=== PATIENT | male | born 1940 | race Caucasian/White ===

== ENCOUNTER 2022-10-08 01:29 | Observation (INO) | payer MEDICARE ==
[2022-10-08] MEDS ORDERED: Aspirin Chewable 81 MG TAB ONE (01:47)
[2022-10-08 01:50] LABS: #Basophils 0.2 10x3/uL (0.0-0.2); #Eosinphils 0.4 10x3/uL (0.0-0.5); #Monocytes 0.8 10x3/uL (0.0-1.1); #Neutrophils 4.7 10x3/uL (1.5-8.4); %Basophils 1.9 % (0.0-2.0); %Eosinophils 4.1 % (0.0-6.0); %Lymphocytes 31.7 % (18.0-47.0); %Monocytes 9.1 % (0.0-10.0); Mean Corpuscular HGB CONC 33.7 g/dL (32.0-36.0); Mean Corpuscular Hemoglobin 30.4 pg (27.0-33.0); Mean Corpuscular Volume 90.2 fl (81.2-95.1); Mean Platelet Volume 10.8 fl (7.4-10.4); Platelet Count 208 10x3/uL (150-450); RBC Distribution Width 12.9 % (11.5-14.5); White Blood Cell (WBC) Count 8.8 10x3/uL (3.5-10.5)
[2022-10-08 02:06] LABS: ALT (SGPT) 21 U/L (8-55); AST (SGOT) 22 U/L (5-34); Albumin 4.1 g/dL (3.4-4.8); Alkaline Phosphatase 67 U/L (40-110); Anion Gap 14 mmol/L (10-20); BUN (Urea Nitrogen) 23 mg/dL (8.4-25.7); Bilirubin, Total 0.3 mg/dL (0.2-1.2); Calc. Creatinine Clearance 0 mL/min (70-130); Calcium 8.9 mg/dL (7.8-10.44); Carbon Dioxide 22 mmol/L (23-31); Chloride 106 mmol/L (98-107); Estimated GFR 61; Globulin 2.7 g/dL (2.4-3.5); Glucose 128 mg/dL (83-110); Protein, Total 6.8 g/dL (5.8-8.1); Sodium 138 mmol/L (136-145)
[2022-10-08] MEDS ORDERED: Guaifenesin DM 100-10/5 ML UDCUP PO PRN (02:53)
[2022-10-08] MEDS ORDERED: Acetaminophen 325 MG TAB PO PRN (02:53)
[2022-10-08] MEDS ORDERED: Ondansetron PF 4 MG/2 ML Vial IVP PRN (02:53)
[2022-10-08] MEDS ORDERED: Zolpidem Tartrate 5 MG TAB PO PRN (02:53)
[2022-10-08] MEDS ORDERED: Calcium Carbonate 500 MG ChewTAB PO PRN (02:53)
[2022-10-08] MEDS ORDERED: Senokot S 8.6-50 MG TAB PO PRN (02:53)
[2022-10-08] MEDS ORDERED: Nitroglycerin 0.4 MG TAB (25 Tab Bottle) SL PRN (02:55)
[2022-10-08 03:45] VITALS: BMI 26.5
[2022-10-08 08:01] LABS: Cardiac Risk 4.3 (Less than 4.5)
[2022-10-08 08:24] VITALS: TEMP 97.7
[2022-10-08] MEDS ORDERED: Aspirin 81 mg Enteric Coated Tablet PO SCH (09:00)
[2022-10-08] MEDS ORDERED: Lisinopril 20 MG TAB PO SCH (09:00)
[2022-10-08] MEDS ORDERED: Finasteride 5 MG TAB PO SCH (09:00)
[2022-10-08] MEDS ORDERED: Amlodipine 5 MG TAB PO SCH (11:15)
[2022-10-08 17:29] VITALS: BP 133/65
[2022-10-09] MEDS ORDERED: Amlodipine 5 MG TAB PO SCH (09:00)
== END 2022-10-08 17:35 | disposition home or self-care (01) ==
LOC: CSHERS 01:29 → INTOOBSV 03:08 → CSHTELE 03:08
PROVIDERS: ADMIT Student in an Organized Health Care Education/Training Program; ATTEND Internal Medicine
DX: R07.89 Other chest pain (principal); R06.02 Shortness of breath; I12.9 Hypertensive chronic kidney disease with stage 1 through stage 4 chronic kidney disease, or unspecified chronic kidney disease; N18.2 Chronic kidney disease, stage 2 (mild); E11.9 Type 2 diabetes mellitus without complications; I34.0 Nonrheumatic mitral (valve) insufficiency; E11.22 Type 2 diabetes mellitus with diabetic chronic kidney disease; N40.0 Benign prostatic hyperplasia without lower urinary tract symptoms; Z79.82 Long term (current) use of aspirin; Z79.899 Other long term (current) drug therapy; Z87.891 Personal history of nicotine dependence; Z95.2 Presence of prosthetic heart valve; Z88.8 Allergy status to other drugs, medicaments and biological substances
CPT/HCPCS: 71045; 80053; 80061; 83735; 83880; 84484 ×2; 85025; 93005; 93306; 96372; 99285; G0378; U0003; U0005; 36415; J1650